=== PATIENT | male | born 1945 | race Hispanic/Latino ===

== ENCOUNTER 2020-07-12 14:08 | Emergency (ER) | payer OTHER, MEDICARE ==
[2020-07-12 14:42] LABS: BASOPHILS % (AUTO) 0.2 % (0.0-5.0); HEMATOCRIT 38.4 % (42-54); LYMPHOCYTES % (AUTO) 8.1 % (21.0-51.0); MEAN CORPUSCULAR HEMOGLOBIN 31.2 pg (27.0-33.0); MEAN CORPUSCULAR HGB CONC 35.9 g/dL (32.0-36.0); MEAN CORPUSCULAR VOLUME 86.9 fL (79-99); NEUTROPHILS % (AUTO) 81.2 % (40.0-77.0); PLATELET COUNT (AUTO) 204 K/uL (130-400); RED BLOOD CELL COUNT(AUTO) 4.42 MIL/uL (4.50-6.20); RED CELL DISTRIBUTION WIDTH 16.9 % (11.0-15.5)
[2020-07-12 14:53] LABS: CREATININE 1.3 mg/dL (0.5-1.5); POTASSIUM 3.5 mmol/L (3.5-5.1)
[2020-07-12 14:55] LABS: INR 0.93 (0.85-1.15); PARTIAL THROMBOPLASTIN TIME 26.4 SEC (26.3-35.5); PROTHROMBIN TIME 10.1 SEC (9.6-11.6)
[2020-07-12 15:02] LABS: ALBUMIN 3.1 g/dL (3.5-5.0); BILIRUBIN,TOTAL 11.4 mg/dL (0.2-1.0); TOTAL PROTEIN, SERUM 7.7 g/dL (6.0-8.3)
[2020-07-12 15:09] LABS: B-TYPE NATRIURETIC PEPTIDE 41 pg/mL (0-100)
[2020-07-12 15:24] LABS: APPEARANCE,URINE CLEAR (CLEAR); BILIRUBIN,URINE LARGE (NEGATIVE); COLOR,URINE YELLOW (YELLOW); GLUCOSE, URINE (UA) 100 mg/dL (NEGATIVE); KETONES,URINE 5 mg/dL (NEGATIVE); LEUKOCYTE ESTERASE ,URINE NEGATIVE (NEGATIVE); NITRATE,URINE POSITIVE (NEGATIVE); OCCULT BLOOD,URINE MODERATE (NEGATIVE); PH,URINE 5.5 (5.0-8.0); PROTEIN,URINE >=300 mg/dL (NEGATIVE)
[2020-07-12] MEDS ORDERED: IOHEXOL-350 75 ML VIAL IV ONE (15:24)
[2020-07-12 15:45] LABS: BACTERIA,URINE Few /HPF (None Seen); MUCUS,URINE Moderate LPF (None Seen)
[2020-07-12 15:46] LABS: SQUAMOUS EPITHELIAL CELL,UR Few /HPF (0-2)
[2020-07-12] MEDS ORDERED: ONDANSETRON HCL 4 MG/2 ML VIAL ONE (16:29)
[2020-07-12] MEDS ORDERED: FAMOTIDINE/PF 20 MG/2 ML VIAL IV ONE (16:30)
[2020-07-12] MEDS ORDERED: DiphenhydrAMINE HCL 50 MG/ML VIAL ONE ×3 (17:37→18:21)
[2020-07-12] MEDS ORDERED: CHLORPROMAZINE HCL 25 MG/ML 1ML AMP ONE ×3 (17:38→18:20)
[2020-07-12] MEDS ORDERED: SODIUM CHLORIDE 0.9% 100 ML IV ONE (18:21)
[2020-07-12] MEDS ORDERED: SODIUM CHLORIDE 0.9% 1000ML 1,000 ML IV ONE (23:23)
== END 2020-07-13 03:07 | disposition short-term general hospital (02) ==
LOC: EDH 14:08
DX: K85.10 Biliary acute pancreatitis without necrosis or infection (principal); R16.0 Hepatomegaly, not elsewhere classified; Z20.828 Contact with and (suspected) exposure to other viral communicable diseases; E80.7 Disorder of bilirubin metabolism, unspecified; E66.01 Morbid (severe) obesity due to excess calories; Z90.49 Acquired absence of other specified parts of digestive tract; Z90.5 Acquired absence of kidney
CPT/HCPCS: 36415; 71045; 74177; 80053; 81001; 82550; 83690; 83880; 84484; 85025; 85610; 85730; 87088; 87426; 93005; 96374; 96375; 99285; J1200 ×2; J2405; J3230 ×2; J3490; J7030; Q9967